=== PATIENT | female | born 1960 | race Caucasian/White ===

== ENCOUNTER → 2016-07-02 | Outpatient (CLI) | payer BC ==
--- NOTE | 2016-07-02 17:12 | DI ---
XR CXR 2VW PA/LAT,07/02/2016 4:47 PM: Clinical History: Injury Previous Exam: May 15, 2015 Findings: PA and lateral views of the chest are obtained, and demonstrate clear lungs. The cardiomediastinum an d bony thorax are unremarkable. Impression: Normal chest.
== END ==
LOC: MOB RAD 16:48
PROVIDERS: ATTEND Physician Assistant Medical
DX: S29.8XXA Other specified injuries of thorax, initial encounter (principal); W17.81XA Fall down embankment (hill), initial encounter; Y93.01 Activity, walking, marching and hiking; Y92.73 Farm field as the place of occurrence of the external cause; Y99.0 Civilian activity done for income or pay
CPT/HCPCS: 71020

== ENCOUNTER → 2016-07-19 | Outpatient (CLI) | payer OTHER ==
--- NOTE | 2016-07-25 18:16 | DI ---
RIGHT RIB SERIES WITH PA CHEST X-RAY, 07/19/2016 10:09 AM: Clinical History: Right chest wall pain. PA Chest: Previous Exam: 07/02/2016. Respiratory motion artifacts are present on this film. There is no acute soft tissue or bony abnormal ity. There is cardiomegaly. Because of the motion artifact, assessment for CHF is not possible. Lungs are clear. Mediastinal structures are normal. RIGHT Rib Series: There is no rib fracture noted. The visualized portions of the lung are clear. Readin. There is no right-sided rib fracture noted. 2. There is cardiomegaly. Because of respiratory motion artifacts, CHF cannot be evaluated.
== END ==
LOC: MOB RAD 09:46
PROVIDERS: ATTEND Nurse Practitioner
DX: R07.89 Other chest pain (principal); W17.81XD Fall down embankment (hill), subsequent encounter
CPT/HCPCS: 71101

== ENCOUNTER → 2016-08-13 | Outpatient (CLI) | payer OTHER, BC ==
--- NOTE | 2016-08-14 11:57 | DI ---
XR SHOULDER MIN 2VW,08/13/2016 2:55 PM: Clinical History: Left shoulder pain Previous Exam: None at this facility. Findings: 4 views of the left shoulder are obtained, and demonstrate anatomic alignment without fractures. Ther e is mild osteopenia noted. There are some mild degenerative changes involving the left acromioclavicular joint. The adjacent left lung and chest wall are unremarkable. Impression: Diffuse osteopenia and mild degenerative changes of the left acromioclavicular joint otherwise unrema rkable.
== END ==
LOC: ORTHO 14:59
PROVIDERS: ATTEND Physician Assistant
DX: M25.512 Pain in left shoulder (principal); S46.012A Strain of muscle(s) and tendon(s) of the rotator cuff of left shoulder, initial encounter; M19.012 Primary osteoarthritis, left shoulder; W10.2XXA Fall (on)(from) incline, initial encounter
CPT/HCPCS: 73030

== ENCOUNTER → 2016-08-14 | Outpatient (CLI) | payer OTHER, BC ==
--- NOTE | 2016-08-15 08:36 | DI ---
MRI UP EXTREMITY JNT W/O CN,08/14/2016 3:06 PM: Clinical History: Left shoulder pain. Previous Exam: None at this facility. Findings: Multiplanar MR images are obtained through the left shoulder without contrast. Bony alignment is carlos omic with some mild superior location of the left humerus on the glenoid. There is degenerative hypertrophy of the left acromioclavicular joint. There is some mild tendinosis of the distal supraspinatus tendon. The teres minor and subscapularis tendons are intact. There is a trace amount of fluid within the sub coracoid bursa. The long head of the biceps tendon is well seated within the bicipital groove. The glenoid labrum is normal as far as evaluated. Articular cartilage is grossly normal but not well evaluated on this exam. The major vascular structures are unremarkable. The glenohumeral ligaments are not well evaluated. Impression: Mild increased signal involving the distal supraspinatus tendon consistent with tendinosis. Degenerative hypertrophy of the acromioclavicular joint. Small amount of fluid within the subcoracoid bursa may represent subcoracoid bursitis.
== END ==
LOC: MRI 14:59
PROVIDERS: ATTEND Physician Assistant
DX: S46.012A Strain of muscle(s) and tendon(s) of the rotator cuff of left shoulder, initial encounter (principal); M19.012 Primary osteoarthritis, left shoulder
CPT/HCPCS: 73221

== ENCOUNTER → 2016-09-12 | Outpatient (CLI) | payer BC ==
--- NOTE | 2016-10-01 09:38 | EKG ---
[address] [address] Measurements Intervals [place] Rate: 78 P: 20 GA: 127 QRS: 27 QRSD: 90 T: 52 QT: 372 QTc: 405 Interpretive Statements SINUS RHYTHM ST ELEVATION INFERIOR-LATERAL LEADS OF POSSIBLE EARLY REPOLARIZATION No previous ECG available for comparison Electronically Signed On 10-01-16 15:10:37 MDT by Errol Mayorga [email or web address]
== END ==
LOC: EKG 13:17
PROVIDERS: ATTEND Specialist
DX: I51.7 Cardiomegaly (principal)
CPT/HCPCS: 93005; 93010

== ENCOUNTER 2016-10-08 05:52 | Day surgery (SDC) | payer BC ==
[~2016-10-08 05:52] MED LIST: LIDOCAINE W/ SODIUM BICARB 0.5 ML SYR ONE; Lactated Ringers 1,000 ML PRIMARY IV ONE; ceFAZolin Inj 2gm (Premix) 50 ML IV ONE
[2016-10-08 06:49] LABS: HEMATOCRIT 39.1 % (37.0-47.0); HEMOGLOBIN 12.9 g/dL (12.0-16.0); MEAN CORPUSCULAR HEMOGLOBIN 26.9 PG (27-31); MEAN CORPUSCULAR VOLUME 81.6 FL (81-99); MEAN PLATELET VOLUME 10.5 FL (7.4-12.2); RED BLOOD COUNT 4.79 10^6/uL (4.20-5.40)
[2016-10-08] MEDS ORDERED: EPINEPHrine Inj (1:1,000) 30mg/30ml vial ONE (06:51)
[2016-10-08] MEDS ORDERED: Ropivacaine 0.2% VIAL 20 ML ONE (06:51)
[2016-10-08 06:55] LABS: BLOOD UREA NITROGEN 17 mg/dL (7-22); BUN/CREATININE RATIO 28.33 (6-20); CALCIUM 9.8 mg/dL (8.7-10.7); EST GLOMERULAR FILTRATION > 60 (>60 ml/min/1.73m(2))
[2016-10-08] MEDS ORDERED: MIDAZOLAM 5 MG/1 ML ONE (07:04)
[2016-10-08] MEDS ORDERED: LIDOCAINE 2%/ EPI 1:200,000 - 20 ML VIAL ONE (07:04)
[2016-10-08] MEDS ORDERED: BUPivacaine Inj 0.5% PF (5mg/ml) 30ml vial ONE (07:05)
[2016-10-08] MEDS ORDERED: DEXAMETHASONE SOD PHOSPHATE 4 MG/1 ML VIAL ONE (07:05)
[2016-10-08] MEDS ORDERED: fentaNYL Inj 250 MCG/5 ML VIAL ONE (07:05)
[2016-10-08] MEDS ORDERED: LIDOCAINE MPF 2% - 5 ML (20 MG/1 ML) ONE (07:24)
[2016-10-08] MEDS ORDERED: Lactated Ringers 1,000 ML PRIMARY IV ONE ×2 (08:11→13:11)
[2016-10-08] MEDS ORDERED: HYDROmorphone 2 MG/1 ML IVP PRN (08:48)
[2016-10-08] MEDS ORDERED: ONDANSETRON 4 MG/2 ML VIAL IVP PRN ×2 (08:48→10:46)
[2016-10-08] MEDS ORDERED: NORMAL SALINE 10 ML SYRINGE FLUSH IVP PRN ×2 (08:48→10:46)
[2016-10-08] MEDS ORDERED: fentaNYL Inj 100 MCG/2 ML VIAL IVP PRN (08:48)
[2016-10-08] MEDS ORDERED: Lactated Ringers 1,000 ML PRIMARY IV SCH ×2 (09:00→11:00)
[2016-10-08] MEDS ORDERED: Iothalamate Meglumine 30 ML VIAL IV ONE (09:25)
[2016-10-08] MEDS ORDERED: diphenhydrAMINE 50 MG/1 ML VIAL ONE (09:27)
--- NOTE | 2016-10-08 09:57 | CRNA.PROCE ---
Nerve Block Documentation - - Type of Nerve Block Used: Left Interscalene Block Position for Nerve Block: Supine Moniters Used During Block: EKG, SPO2, NIBP Oxygen Sumpplented: Yes Sedation Used - Enter Amount in Comment Field: Midazolam (mg): Yes (3mg), Fentanyl (mcg): Yes (150mcg) Skin Prep Used: ChloroPrep Draped: No Technique: Nerve Stimulator Nerve Block Needle Used: 40 mm ProBlk II Stimulation Hz: 2 Stimulation Staring mA: 1.2 Stimulation Ending mA: 0.48 Local Anesthetic - Enter Amt in Comment Field: 0.5 % Bupivacaine Plain (mL): Yes (20ml), 2 % Xylocaine with Epinephrine 1:200,000 (mL): Yes (20ml) Additives to Nerve Blocks: Dexamethasone (mL): Yes (8mg(2ml))
[2016-10-08] MEDS ORDERED: ACETAMINOPHEN 325 MG TABLET PO PRN (10:46)
[2016-10-08] MEDS ORDERED: IBUPROFEN 400 MG TABLET PO PRN (10:46)
[2016-10-08] MEDS ORDERED: MAG HYDROX/AL HYDROX/SIMETH 30 ML SUSP PO PRN (10:46)
[2016-10-08] MEDS ORDERED: BISACODYL 5 MG TABLET PO PRN (10:46)
[2016-10-08] MEDS ORDERED: MORPHINE SULFATE 2 MG/1 ML IVP PRN (10:46)
[2016-10-08] MEDS ORDERED: BISACODYL 10 MG SUPPOSITORY RECTAL PRN (10:46)
[2016-10-08] MEDS ORDERED: diphenhydrAMINE 25 MG CAPSULE PO PRN (10:46)
[2016-10-08] MEDS ORDERED: CALCIUM CARBONATE 500 MG (TUMS) CHEWABLE TABLET PO PRN (10:46)
[2016-10-08] MEDS ORDERED: HYDROcodone-APAP 7.5 MG-325 MG TABLET PO PRN (10:46)
[2016-10-08] MEDS ORDERED: Ondansetron ODT Tab 8 MG TAB PO PRN (10:46)
[2016-10-08] MEDS ORDERED: Prochlorperazine Tab 10 MG TAB PO PRN (10:46)
[2016-10-08] MEDS ORDERED: KETOROLAC 30 MG/1 ML VIAL IVP ONE (11:08)
[2016-10-08] MEDS ORDERED: KETOROLAC 30 MG/1 ML VIAL ONE (11:13)
[2016-10-08 11:17] VITALS: RESP 16
[2016-10-08] MEDS: FLUMAZENIL 0.1 MG/1 ML - 5 ML IVP ONE ×2 (13:12→13:24)
[2016-10-08 14:32] VITALS: TEMP 98.5
--- NOTE | 2016-10-08 16:11 | OPS SHOULD ---
Diagnosis : Left Shoulder HAWK/Nava/Biceps Referral Reason: Instruction in Activities of Daily Living/Shoulder Cryo Cuff O: The patient was instructed in activities of daily living including dressing and bathing as well as shoulder do's and don'ts. The patient was issued a cryo cuff for the left shoulder and instructed in its proper use and care. P: No further therapy is indicated at this time. The patient will begin outpatient physical therapy. SUSAN
== END 2016-10-08 15:05 | disposition home or self-care (01) ==
LOC: SDSC 05:52
PROVIDERS: ATTEND Orthopaedic Surgery
DX: M75.42 Impingement syndrome of left shoulder (principal); M19.012 Primary osteoarthritis, left shoulder; M75.22 Bicipital tendinitis, left shoulder
CPT/HCPCS: 23430; 29822; 29824; 80048; 85027; 87641; 97530; J0171; J0690; J1885; J2704; J2795; J3010; J1100; J1200; J2001; J2250; J3490; J7120